=== PATIENT | female | born 1995 | race Caucasian/White ===

== ENCOUNTER 2021-04-06 10:48 | Observation (INO) | payer OTHER, SELFPAY ==
[2021-04-06 09:48] VITALS: BMI 32.8
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
[2021-04-06 11:30] VITALS: BP 133/96; PULSE 99; RESP 18; TEMP 36.7; O2SAT 100
[2021-04-06] MEDS: oxyCODONE 5 MG Tablet PO ×2 (12:48→19:02)
[2021-04-06 15:54] VITALS: BP 118/77; PULSE 86; RESP 18; TEMP 36.3; O2SAT 99
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
[2021-04-06 21:11] LABS: Internal QC Validated? YES +Cl - CLEAR BKGD; Pregnancy, Urine Negative Negative
[2021-04-06] MEDS: Azelastine HCl NASAL.SRY 2 SPRAY NASAL (21:17)
[2021-04-06] MEDS: Docusate Sodium 100 MG Capsule PO (21:17)
[2021-04-06 22:00] VITALS: BP 111/63; PULSE 87; RESP 16; TEMP 37.3; O2SAT 97
[2021-04-07] VITALS (11 sets, daily range): BP systolic 109–163; BP diastolic 67–94; PULSE 72–120; RESP 14–16; TEMP 36.1–37.1; O2SAT 92–99; BMI 32.8
[2021-04-07] MEDS: oxyCODONE 5 MG Tablet PO ×4 (02:49→21:01)
--- NOTE | 2021-04-07 11:00 | RAD_ITS ---
STUDY: X-RAY - LEFT ANKLE REASON FOR EXAM: Female, 25 years old. ORIF, ANKLE, LEFT TECHNIQUE: 2 view(s) of the ankle. COMPARISON: None. FINDINGS: Intraoperative imaging provided for ORIF of the distal tibial and fibular fractures. RAD/Ankle 2 Views IMPRESSION: Intraoperative imaging provided for ORIF of the distal tibial and fibular fractures. Electronically Signed: Alexandre Blackman MD at 15:24 EDT , Service support ,
[2021-04-07] MEDS: Cefazolin 2 GM in 0.9% Normal Saline 100 ML IV (11:15)
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
[2021-04-07] MEDS: Azelastine HCl NASAL.SRY 2 SPRAY NASAL ×2 (15:33→21:02)
[2021-04-07] MEDS: FLUoxetine 20 MG Capsule 40 MG PO (15:33)
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
[2021-04-07] MEDS: 0.9% Saline Lock 10 ML Syringe IV ×2 (16:24→23:04)
[2021-04-07] MEDS: Ondansetron 4 MG/2 ML Vial IV (16:24)
[2021-04-07] MEDS: Docusate Sodium 100 MG Capsule PO (23:04)
[2021-04-07] MEDS: MELATONIN 3 MG TABLET PO (23:04)
[2021-04-08] MEDS: oxyCODONE 5 MG Tablet PO ×3 (01:55→14:30)
[2021-04-08 03:31] VITALS: BP 104/65; PULSE 102; RESP 16; TEMP 36.8; O2SAT 98
[2021-04-08 06:53] VITALS: BP 118/75; PULSE 90; RESP 16; TEMP 36.8; O2SAT 100
--- NOTE | 2021-04-08 08:01 | PCM.PROGNOTE ---
Subjective Subjective This 25 year old female was seen bedside this morning for left POD #1 open reduction internal fixation of left bimalleolus ankle fracture with additional syndesmosis repair. She denies fever, chills, nausea, vomiting, shortness of breath, chest pain, calf pain. Her regional block is starting to wear off and her pain is rated as 6/10. She did have nausea with morphine and requests a lower dose. Objective Data Objective Data Vital Signs: Vital Signs Temp Pulse Resp BP Pulse Ox 98.2 F 90 16 118/75 100 04/08/21 06:53 04/08/21 06:53 04/08/21 06:53 04/08/21 06:53 04/08/21 06:53 Oxygen Delivery Method Room Air Weight: 93.8 kg Body Mass Index (BMI) 32.8 Intake & Output: Intake and Output for Last 24 Hours 04/06/21 04/07/21 04/08/21 23:59 23:59 23:59 Intake Total 550 / 550 340 / 670 480 / 480 Balance 550 / 550 340 / 670 480 / 480 Lab / Micro Data Micro: Microbiology 04/06/21 15:20 Mucosa - Nose SARS-CoV-2 Antigen (Rapid) - Final Radiography Diagnostic Testing: Radiology Impression Ankle X-Ray 04/07/21 11:00 IMPRESSION: Intraoperative imaging provided for ORIF of the distal tibial and fibular fractures. Electronically Signed: Alexandre Blackman MD at 15:24 EDT , Service support , Ankle X-Ray 04/07/21 14:06 IMPRESSION: Status post ORIF of the bimalleolar fracture. Soft tissue changes. Electronically Signed: Alexandre Blackman MD at 15:01 EDT , Service support , Physical Exam Const alert and oriented x3 General Appearance: cooperative HEENT normocephalic Extremity normal capillary refill Extremity Narrative: no cyanosis, no calf tenderness (neg spicer bilateral) muscle wasting noted. no tenderness. left repaired ankle in rectus position with posterior mold splint intact compartments left lower limb remain soft AROM digits left foot General Extremity: edema Skin Skin Narrative: no purulence, no erythema, no streaking, no odor, no infection adjacent to splint/dressing. No dressing strikethrough. Adjacent skin is atrophic Neuro Neuro Narrative: epicritic sensation intact via light to digits of surgical limb Assessment & Plan Assessment/Plan (1) Sprain of other ligament of left ankle, subsequent encounter: (2) Ankle pain, left: (3) Fracture of ankle, bimalleolar, left, closed: PLAN: She is stable postoperative day #1 left open reduction internal fixation by malleolus ankle fracture and syndesmosis repair. She is afebrile and her vital signs remained stable. Her dressing and splint will be kept clean, dry, and intact. She is advised to maintain a strict nonweightbearing status to the surgical limb with assistive devices. She will work with physical therapy this morning to confirm nonweightbearing status to left lower extremity with walker or knee roller. Pain medications adjusted to reduce morphine dose due to reported nausea. I also added IV Toradol and she can continue with oral oxycodone medication also. I will communicate with her after her regional block has completely worn off to confirm her pain is controlled and her anticipated discharge is this afternoon. Postoperative pain medication prescription (oxycodone and naproxen) and bowel regimen will be sent to [facility]. We discussed DVT prophylaxis risk and benefits of medications and she does not have a history of clotting or family history of clots and she is will remain fairly active. We will hold off on prophylactic medication. She was educated on signs and symptoms of pulmonary embolism and DVT Medical management per hospitalist and recommendations are appreciated. To [facility] with the [facility] in 1 week. Teresa Paredes DPM, FACFAS [facility] [phone]
[2021-04-08] MEDS: Azelastine HCl NASAL.SRY 2 SPRAY NASAL (09:07)
[2021-04-08] MEDS: FLUoxetine 20 MG Capsule 40 MG PO (09:07)
[2021-04-08] MEDS: 0.9% Saline Lock 10 ML Syringe IV (09:14)
[2021-04-08] MEDS: Ketorolac 30 MG/ML Syringe IV (09:14)
--- NOTE | 2021-04-08 09:52 | PN.HOSP_ITS ---
Subjective Subjective Patient states she is feeling well and anticipates going home later today. No overnight events. Objective Data Objective Data Vital Signs: Vital Signs Temp Pulse Resp BP Pulse Ox 98.2 F 90 16 118/75 100 04/08/21 06:53 04/08/21 06:53 04/08/21 06:53 04/08/21 06:53 04/08/21 06:53 Oxygen Delivery Method Room Air Weight: 93.8 kg Body Mass Index (BMI) 32.8 Intake & Output: Intake and Output for Last 24 Hours 04/06/21 04/07/21 04/08/21 23:59 23:59 23:59 Intake Total 550 / 550 340 / 670 480 / 480 Balance 550 / 550 340 / 670 480 / 480 Lab / Micro Data Micro: Microbiology 04/06/21 15:20 Mucosa - Nose SARS-CoV-2 Antigen (Rapid) - Final Radiography Diagnostic Testing: Radiology Impression Ankle X-Ray 04/07/21 11:00 IMPRESSION: Intraoperative imaging provided for ORIF of the distal tibial and fibular fractures. Electronically Signed: Alexandre Blackman MD at 15:24 EDT , Service support , Ankle X-Ray 04/07/21 14:06 IMPRESSION: Status post ORIF of the bimalleolar fracture. Soft tissue changes. Electronically Signed: Alexandre Blackman MD at 15:01 EDT , Service support , Physical Exam Const alert, oriented x3 and no apparent distress Constitutional Narrative: Young white female lying in bed watching television, a ppears comfortable, nontoxic Resp normal respiratory effort, no retractions, no use of accessory muscles and clear to auscultation bilaterally Cardio regular rate, regular rhythm, S1 normal heart sound, S2 normal heart sound, no murmurs, no rub, no gallops, no clicks and no JVD GI normal to inspection, nondistended, normoactive bowel sounds, soft to palpation, non-tender and non-distended Extremity no clubbing, cyanosis or edema Extremity Narrative: Left lower extremity is in posterior immobilizing splint with Jefe bandage, cap refill is good bilaterally Neuro oriented x3 Sensorium / Orientation: awake and alert Assessment & Plan Assessment/Plan (1) Fracture of ankle, bimalleolar, left, closed: (2) Sprain of other ligament of left ankle, subsequent encounter: PLAN: Assessment: Traumatic left ankle bimalleolar fracture Seasonal allergies Anxiety/depression ADD Plan: -Okay to discharge from a medical standpoint -Would recommend bowel regimen if patient on scheduled or taking as needed narcotics consistently Charges/Coding Visit Charges Inpatient E&M: 31567 Subs Hosp L2
--- NOTE | 2021-04-08 11:35 | NURSING ---
awaiting new order for tylenol to be acknowledged and placed per Rx so that medication can be pulled from accudose
[2021-04-08] MEDS: Acetaminophen 325 MG Tablet PO (11:56)
--- NOTE | 2021-04-08 12:03 | NURSING ---
spoke w/ declan in PT, she is aware pt can not be dc'd until she receives crutch instruction
[2021-04-08 14:55] VITALS: BP 136/88; PULSE 94; RESP 18; TEMP 36.9; O2SAT 98
--- NOTE | 2021-04-08 15:52 | PCM.DC.SUM ---
Providers Date of Admission: 04/06/21 Primary Care Physician: ERIN TateC Reason For Visit: L ANKLE FX Diagnosis Discharge Diagnosis (1) Fracture of ankle, bimalleolar, left, closed: Status: Acute Code(s): S82.842A - Displaced bimalleolar fracture of left lower leg, initial encounter for closed fracture (2) Ankle pain, left: Status: Acute Code(s): M25.572 - Pain in left ankle and joints of left foot (3) Sprain of other ligament of left ankle, subsequent encounter: Status: Acute Code(s): S93.492D - Sprain of other ligament of left ankle, subsequent encounter Medications at Discharge Home Medications Mydayis 1 ea PO DAILY 04/06/21 azelastine 2 spray INTRANASAL BID 04/06/21 fluoxetine 40 mg PO DAILY 04/06/21 ketotifen fumarate 1 drp EACH EYE DAILY 04/06/21 loratadine 10 mg PO DAILY 04/06/21 docusate sodium 100 mg PO BID 5 Days #10 cap 04/08/21 naproxen 500 mg PO BID PRN 7 Days #14 tab 04/08/21 oxycodone-acetaminophen 1 tab PO Q6H PRN 7 Days #28 tab 04/08/21 Hospital Course Operations - (Left open reduction internal fixation of bimalleolar ankle fracture with additional syndesmosis repair) Summary of Care Provided Minutes Spent on Discharge: 20 Hospital Course: She was admitted on 04-06-21 for preoperative optimization, left ankle repair surgery was performed on 04-07-21 and she stayed overnight for pain control and for assistive walking device training. Her ankle repair went well, her pain was controlled as her regional block wore off, and she did very well with physical therapy. She was discharged on 04-08-21. Work note was provided. Additional postoperative pain and constipation management descriptions were provided. Physical Exam Const alert and oriented x3 Extremity Extremity Narrative: Neurovascular status intact bilateral lower extremities. Postoperative her left lower extremity maintained in a rectus position with dressing and posterior mold splint intact. Active range of motion left digits noted with brisk capillary refill time also to all digits. Negative Jennings sign bilateral. Weight / BMI Weight Weight: 93.8 kg Body Mass Index (BMI) 32.8 ABG / Lab / Microbiology Data Microbiology: Microbiology 04/06/21 15:20 Mucosa - Nose SARS-CoV-2 Antigen (Rapid) - Final Radiography Diagnostic Testing: Multiple intraoperative and postoperative left ankle x-rays demonstrate reduction of fractures of the distal fibula and tibia with plates and screws. Evidence of syndesmosis FiberWire was also noted with reduced and is most this injury. No acute injuries are noted. The hardware is in the desired trajectory and position. D/C Instructions Discharge Diet: No restrictions Discharge Activity: May Shower (Use shower bag to keep dressing and splint clean, dry, and intact), Use Walker, Use Crutches and - (Use knee roller) Return to work on: 05/09/21 Ice area for (Minutes): 15 Weight Bearing Status: No weight bearing Keep extremity elevated above heart level: Operative Extremity Call your doctor if your incision/area has: Continuous Slow Oozing, Sudden Increased Bleeding, Increased Pain/ Swelling, Increased Redness, Foul Smelling Discharge and Swelling at the incision site Call your doctor if you observe: Fever of 101 or Higher, Coldness, Increased Pain, Numbness or Tingling, Change in Color, Inability to urinate, Inability to have a bowel movement, Shortness of breath, Calf discomfort and Uncontrolled pain Change Dressing in: do not change dressing Remove Dressing in: leave in place till F/U Please Follow Up With: Teresa Paredes DPM When: [facility] Call [phone] to schedule. Please do not hesitate to call earlier if you have any questions or concerns. Meaningful Use Info Meaningful Use Diagnoses (Choose all that apply): None applicable Discharge Plan Admission Admit Date/Time: 04/06/21 10:48 Primary Reason for Your Visit: Left ankle fracture Attending Provider: Teresa Paredes Primary Care Provider: Amy Alex NP Consulting Providers: Henrietta Tse Instructions Patient Instructions: Ankle Fracture ORIF, Ankle Fracture ORIF Additional Instructions / Restrictions: Patient Problems: Altered Health Status related to Hospitalization Patient Goals: *Optimal Level of Health *Keep Appointments *Medication Compliance *Remain SafeMaintain non weightbearing status left lower extremity with walker or knee roller. Keep dressing and splint clean, dry, intact until follow up at the [facility]. Use shower bag during bathing activities. Take pain medication as prescribed in a safe manner. Discharge Orders/Prescriptions Prescriptions: New oxycodone-acetaminophen 5-325 mg tablet 1 tab PO Q6H PRN (Reason: pain) 7 Days Qty: 28 RF: 0 naproxen 500 mg tablet 500 mg PO BID PRN (Reason: pain) 7 Days Qty: 14 RF: 0 docusate sodium 100 mg capsule 100 mg PO BID 5 Days Qty: 10 RF: 0 Continued fluoxetine 40 mg capsule 40 mg PO DAILY RF: 0 ketotifen fumarate 0.025 % (0.035 %) Drops 1 drp EACH EYE DAILY RF: 0 azelastine 137 mcg (0.1 %) aerosol,spray 2 spray INTRANASAL BID RF: 0 loratadine 10 mg Tablet 10 mg PO DAILY RF: 0 Mydayis 25 mg capsule, ER triphasic 24 hr 1 ea PO DAILY RF: 0 Discontinued oxycodone-acetaminophen [Percocet] 5-325 mg Tablet 1 - 2 tab PO Q6H PRN (Reason: Pain) RF: 0 Referrals / Follow Up: Teresa Paredes DPM [STAFF PHYSICIAN] - In 1 Week (Follow up within one week w/ Dr. Paredes or call sooner if questions or concerns at [phone].) Amy Alex NP, CERTIFIED CONTROL SYSTEMS TECHNICIAN-C [Primary Care Provider] - Disposition Disposition (needs filled in before D/C Order can be placed): Home, Self Care
== END 2021-04-08 15:35 | disposition home or self-care (01) | DRG 494 ==
PROVIDERS: Admitting Provider Podiatrist; PCP Nurse Practitioner Family; Visit Provider Podiatrist
PROC: (CPT 27814; principal; 2021-04-07 10:40)
DX: S82.842A Displaced bimalleolar fracture of left lower leg, initial encounter for closed fracture (principal); V99.XXXA Unspecified transport accident, initial encounter; Y93.9 Activity, unspecified; Y92.9 Unspecified place or not applicable; Y99.9 Unspecified external cause status; F32.9 Major depressive disorder, single episode, unspecified; S93.432A Sprain of tibiofibular ligament of left ankle, initial encounter; F41.9 Anxiety disorder, unspecified; F98.8 Other specified behavioral and emotional disorders with onset usually occurring in childhood and adolescence; E66.9 Obesity, unspecified; Z68.32 Body mass index [BMI] 32.0-32.9, adult; Z79.899 Other long term (current) drug therapy
CPT/HCPCS: 27814; 64447; 73600; 73610; 76000; 81025; 87426; 96374; 96375; 97162; 99218; 99251; C1713; A4216; G0378; G0463; J2405